=== PATIENT | male | born 1965 | race Caucasian/White ===

== ENCOUNTER 2016-09-29 11:30 | Inpatient (IN) | payer OTHER ==
[2016-09-29] MEDS ORDERED: ACETAMINOPHEN TAB 325 MG TAB PO PRN (22:33)
[2016-09-29] MEDS ORDERED: ONDANSETRON 4 MG/2 ML VIAL IVP PRN (22:34)
[2016-09-30 00:02] LABS: Appearance,Urine Clear (Clear); Bilirubin,Urine Negative (Negative); Glucose,Urine (UA) Negative (Negative); Ketones,Urine Negative (Negative); Leukocyte Esterase,Urine Negative (Negative); Nitrite,Urine Negative (Negative); PH, Urine 5.5 (5.0-8.0); Protein,Urine Negative (Negative); Specific Gravity,Urine 1.003 (1.001-1.035); UA Billing (MACRO vs. MICRO) CHEM; Urobilinogen,Urine <2.0 mg/dL (<2.0)
[2016-09-30] MEDS: SODIUM CHLORIDE 0.9% 1,000 ML IV SCH ×3 (06:11→14:46)
--- NOTE | 2016-09-30 08:29 | US ---
EXAMINATION TYPE: US kidneys/renal and bladder DATE OF EXAM: 09/30/2016 7:54 AM COMPARISON: Prior ultrasound abdomen 15 August 2012 CLINICAL HISTORY: Renal failure. Grayscale, color Doppler imaging performed. Color flow noted bilaterally to the kidneys. EXAM MEASUREMENTS: Right Kidney: 11.3 x 6.0 x 5.2 cm Left Kidney: 12.0 x 6.7 x 5.3 cm TECHNOLOGIST IMPRESSION: Right Kidney: visualized portions wnl, inferior pole limited by overlying bowel gas Left Kidney: visualized portion wnl, limited by rib shadowing Bladder: wnl Bilateral Jets seen: yes There is no evidence for hydronephrosis at this point in time. No nephrolithiasis is seen. No [place] s are identified. The urinary bladder is anechoic. Bilateral ureteral jets are seen. IMPRESSION: No significant abnormality.
[2016-09-30] MEDS ORDERED: ENOXAPARIN 40 MG/0.4 ML SYRINGE SQ SCH (09:00)
[2016-09-30 09:32] LABS: Basophils % (A) 1 %; CH 32.6; CHCM 32.6; Eosinophils # (A) 0.1 k/uL (0-0.7); Eosinophils % (A) 1 %; HCT 39.4 % (39.0-53.0); HDW 2.16; HGB 12.5 gm/dL (13.0-17.5); Luc # (Auto) 0.19; Luc % (Auto) 4; Lymphocytes # (A) 0.8 k/uL (1.0-4.8); Lymphocytes % (A) 16 %; MCH 31.8 pg (25.0-35.0); MCHC 31.7 g/dL (31.0-37.0); MCV 100.4 fL (80.0-100.0); Mean Platelet Volume 8.3; Monocytes # (A) 0.4 k/uL (0-1.0); Monocytes % (A) 8 %; Neutrophils # (A) 3.8 k/uL (1.3-7.7); Neutrophils % (A) 72 %; RBC 3.92 m/uL (4.30-5.90); RDW 12.9 % (11.5-15.5); WBC 5.3 k/uL (3.8-10.6); WBC (Perox) 5.35
[2016-09-30 09:56] LABS: Calcium 9.3 mg/dL (8.4-10.2); Potassium 5.7 mmol/L (3.5-5.1)
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
[2016-09-30] MEDS ORDERED: SODIUM POLYSTYRENE SULFONATE 15 GM/60 ML BOTTLE PO STA (13:16)
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
[2016-09-30] MEDS ORDERED: SODIUM POLYSTYRENE SULFONATE 15 GM/60 ML BOTTLE PO ONE (19:30)
[2016-10-01] MEDS: SODIUM CHLORIDE 0.9% 1,000 ML IV SCH ×5 (05:56→23:05)
[2016-10-01] MEDS: ENOXAPARIN 30 MG/0.3 ML SYRINGE SQ SCH (10:13)
[2016-10-01 12:38] LABS: Calcium 9.3 mg/dL (8.4-10.2); Potassium 4.9 mmol/L (3.5-5.1)
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
--- NOTE | 2016-10-01 20:52 | PN ---
DATE OF SERVICE: 10/01/2016 PRESENTING COMPLAINT: Renal failure. INTERVAL HISTORY: This patient presented with acute renal failure. Exact cause is unknown. Getting fluids. Patient does binge on alcohol. Renal function is slightly improved. Getting IV fluids. Seen by Nephrology. Otherwise feels comfortable. Review of systems done for constitutional, cardiovascular, GI, pulmonary; relevant findings as above. Current medications include IV fluids at 150 mL/hour. On examination, temperature 98.3, pulse 87, respiration 20, blood pressure 163/94, pulse ox 97% on room air. GENERAL APPEARANCE: Lying in bed, comfortable. EYES: Pupils equal. Conjunctivae normal. NECK: JVD not raised. Mass not palpable. RESPIRATORY: Effort normal. Lungs are clear. CARDIOVASCULAR: First and second sounds normal. No edema. ABDOMEN: Soft, nontender. Liver and spleen not palpable. PSYCHIATRY: Alert and oriented x3. Mood and affect normal. INVESTIGATIONS: BUN 31, creatinine 2.0. Potassium corrected to 4.9. ASSESSMENT: 1. Acute renal failure, possibly prerenal, with benign-appearing urine. Getting hydrated. 2. 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 3. Hyperkalemia from renal failure, improved. PLAN: Continue current medication and treatment plan. Follow with Nephrology.
[2016-10-02 08:58] LABS: Calcium 9.2 mg/dL (8.4-10.2); Potassium 4.7 mmol/L (3.5-5.1)
[2016-10-02] MEDS: ENOXAPARIN 30 MG/0.3 ML SYRINGE SQ SCH (09:13)
[2016-10-02] MEDS: SODIUM CHLORIDE 0.9% 1,000 ML IV SCH ×3 (09:28→21:04)
--- NOTE | 2016-10-02 14:23 | PN ---
Patient is seen for followup for acute kidney injury. He is currently resting comfortably. He is awake, not in any acute distress. Patient's renal function has been continuously improving with IV hydration. His creatinine is now down to 1.5 from 4.6 on initial admission to the [facility]. On examination, blood pressure is 129/77, heart rate 62 per minute. He is afebrile. EXAMINATION OF THE HEART: S1 and S2. EXAMINATION OF THE LUNGS: Bilateral breath sounds are heard. ABDOMEN: Soft, nontender. Examination of lower extremities shows no evidence of edema. INVOICE CHECKER exam is grossly intact. Labs show sodium 146, potassium 4.7, BUN 23, serum creatinine 1.56. UA is completely clear. ASSESSMENT: 1. Acute kidney injury, mainly prerenal, currently improved. The patient is stable for discharge from nephrology standpoint. 2. History of seizures associated with traumatic brain injury. 3. Hyperkalemia on initial admission, currently resolved. PLAN: Patient is advised to maintain adequate fluid intake upon discharge and avoid nonsteroidal anti-inflammatory agents. Once he is discharged, he needs to have labs done as outpatient in about 1 to 2 weeks' time.
[2016-10-03 01:12] VITALS: PULSE 56
[2016-10-03] MEDS: SODIUM CHLORIDE 0.9% 1,000 ML IV SCH ×3 (03:52→14:16)
[2016-10-03 07:30] VITALS: BP 156/86; RESP 17; TEMP 96.7
[2016-10-03] MEDS: ENOXAPARIN 30 MG/0.3 ML SYRINGE SQ SCH (08:01)
[2016-10-03 08:50] LABS: Anion Gap 13 mmol/L; Blood Urea Nitrogen 18 mg/dL (9-20); Calcium 9.2 mg/dL (8.4-10.2); Carbon Dioxide 27 mmol/L (22-30); Chloride 109 mmol/L (98-107); Glucose 86 mg/dL (74-99); Non-African American GFR(MDRD) 58 (>60 ml/min/1.73 sqM); Potassium 4.5 mmol/L (3.5-5.1); Sodium 149 mmol/L (137-145)
--- NOTE | 2016-10-03 11:23 | PN ---
DATE OF SERVICE: 10/02/2016 PRESENTING COMPLAINT: Acute renal failure. INTERVAL HISTORY: This patient presented with acute renal failure. I saw this patient earlier today. Exact cause undetermined. Some improvement in renal function. Patient was asymptomatic. Getting IV fluids. Review of systems done for constitutional, cardiovascular, GI, pulmonary; relevant findings as above. Current medications are reviewed including IV fluids. On examination, temperature 98.6, pulse 51, respirations 18, blood pressure 114/93, 90% on room air. GENERAL APPEARANCE: Lying in bed, comfortable. EYES: Pupils equal, conjunctivae normal. NECK: JVD not raised. Mass not palpable. RESPIRATORY: Effort normal. Lungs are clear. CARDIOVASCULAR: First and second sounds normal. No edema. ABDOMEN: Soft, nontender. Liver and spleen not palpable. PSYCHIATRY: Alert and oriented x3. Mood and affect normal. INVESTIGATIONS: BUN 23, creatinine 1.56. ASSESSMENT: 1. Acute renal failure, possibly prerenal. Getting hydrated. 2. 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 3. Hypokalemia from renal failure, resolved. PLAN: Will continue to hydrate the patient today, hopefully can be discharged tomorrow.
--- NOTE | 2016-10-03 17:07 | PN ---
Patient is seen for followup for acute kidney injury which is mainly prerenal and significantly improved with IV hydration. Patient is resting comfortably. He denies any complaints. On examination, blood pressure is 156/86, heart rate 56 per minute. He is afebrile. Examination of the heart, S1 and S2. Examination of the lungs, bilateral breath sounds are heard. Abdomen is soft, nontender. Examination of lower extremities shows no evidence of edema. GLOBE TESTER exam is grossly intact. Labs show sodium 149, potassium 4.5, BUN 18, serum creatinine 1.3. ASSESSMENT: 1. Acute kidney injury, prerenal, currently significantly improved. Patient is stable for discharge. 2. Hypernatremia. Expect improvement once the saline is discontinued and patient is advised to maintain adequate hydration after discharge. 3. Seizures, post traumatic brain injury. PLAN: The patient is stable for discharge from nephrology standpoint.
--- NOTE | 2016-10-04 19:23 | DS ---
DATE OF ADMISSION: 09/29/2016 DATE OF DISCHARGE: 10/03/2016 FINAL DIAGNOSES: 1. Acute renal failure, possibly prerenal. 2. 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 3. Hyperkalemia from renal failure, resolved. HOSPITAL COURSE: This patient presented with renal failure and hyperkalemia, transferred from an outside facility. Potassium was 5.7. BUN and creatinine were 34 and 2.91, at the time of discharge down to 80 and 1.30, down with hydration. He was seen by Dr. Clayton. Patient's UA was rather benign. Urine was unremarkable. Patient will follow up with Dr. Clayton as an outpatient. Patient was told to increase his fluid intake. Follow-up labs: BMP in one week. Follow up with Dr. Clayton in one week. Follow up with PCP in one week.
--- NOTE | 2016-11-05 08:13 | DS ---
DATE OF ADMISSION: 09/29/2016 DATE OF DISCHARGE: 10/03/2016 ADDENDUM: On examination: RESPIRATORY: Effort normal. Lungs are clear. CARDIOVASCULAR: First and second sounds normal. No edema. ABDOMEN: Soft, nontender. Liver and spleen not palpable. PSYCHIATRY: Alert, and oriented x3. Mood and affect normal.
== END 2016-10-03 17:21 | disposition home or self-care (01) | DRG 683 ==
LOC: 4MS4W 19:38
PROVIDERS: ADMIT Hospitalist; ATTEND Hospitalist
DX: N17.9 Acute kidney failure, unspecified (principal); E87.0 Hyperosmolality and hypernatremia; R56.1 Post traumatic seizures; E87.5 Hyperkalemia; F10.10 Alcohol abuse, uncomplicated; F17.200 Nicotine dependence, unspecified, uncomplicated; Z87.820 Personal history of traumatic brain injury; Z87.828 Personal history of other (healed) physical injury and trauma
CPT/HCPCS: 76770; 80048; 81003; 82550; 85025

== ENCOUNTER 2017-11-29 07:57 | Inpatient (IN) | payer OTHER ==
[2017-11-29] MEDS ORDERED: PROPOFOL 1,000 MG in EMPTY BAG 1 BAG IV ONE (08:04)
[2017-11-29] MEDS: LORazepam 2 MG/ML INJ IV STA ×2 (08:09→08:22)
--- NOTE | 2017-11-29 08:47 | XR ---
EXAMINATION TYPE: XR chest 1V portable DATE OF EXAM: 11/29/2017 COMPARISON: 02/22/2014 HISTORY: Seizure and endotracheal tube placement. TECHNIQUE: Single frontal view of the chest is obtained. FINDINGS: The endotracheal tube is located appropriately at the level clavicular heads at the level of the aortic arch. However, the enteric tube is cephalad in position with its fenestrated portion ab ove the gastroesophageal junction. This should be advanced approximately 5 to 6 cm for optimal placem ent. There is persistent elevation of the left hemidiaphragm in comparison to exam of 2013. No new fo petros airspace disease, consolidation, pleural effusion or pneumothorax is identified. Cardiomediastina l silhouette is within normal limits. Moderate multilevel degenerative changes of the thoracic spine are noted. IMPRESSION: 1. Appropriately placed endotracheal tube. 2. Cephalad placement of the enteric tube. Advancement approximately 5 to 6 cm is recommended for opt imal placement. 3. In comparison to the prior of 2013 the left basilar opacity represents a chronically eventrated an d elevated left hemidiaphragm
[2017-11-29 08:52] LABS: ABG Base Excess 0.7 mmol/L; ABG HCO3 26 mmol/L (21-25); ABG PCO2 42 mmHg (35-45); ABG PH 7.39 (7.35-7.45); ABG PO2 375 mmHg (83-108); ABG TCO2 27 mmol/L (19-24)
[2017-11-29] MEDS ORDERED: DIPH,PERTUS(ACELL)TETVAC-LF 0.5 ML VIAL IM ONE (09:10)
[2017-11-29] MEDS ORDERED: cefTRIAXone IN SWFI 1,000 MG/10 ML SYRINGE IVP STA (09:13)
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
[2017-11-29] MEDS ORDERED: NALOXONE 0.4 MG/ML 1 ML VIAL IV PRN (09:28)
[2017-11-29] MEDS ORDERED: MORPHINE SULF 5MG/10ML VL IV PRN (09:28)
[2017-11-29] MEDS ORDERED: LORazepam 2 MG/ML INJ IV PRN (09:34)
[2017-11-29 10:18] LABS: Glucose,Whole Blood 101 mg/dL (75-99)
[2017-11-29] MEDS: SODIUM CHLORIDE 0.9% 1,000 ML IV SCH ×2 (11:04→20:08)
[2017-11-29] MEDS: ENOXAPARIN 40 MG/0.4 ML SYRINGE SQ SCH (11:04)
[2017-11-29] MEDS: PIPERACILLIN-TAZOBACTAM 3.375 GM in DEXTROSE/WATER 1 50ML.BAG IVPB SCH ×2 (11:04→18:32)
[2017-11-29] MEDS: CHLORHEXIDINE GLUCONATE 15 ML CUP MUCOUS MEM SCH ×2 (11:04→20:09)
[2017-11-29] MEDS: IPRATROPIUM-ALBUTEROL 3 ML NEB INHALATION SCH ×3 (11:05→19:28)
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
[2017-11-29] MEDS: PROPOFOL 1,000 MG in EMPTY BAG 1 BAG IV SCH ×2 (12:31→20:08)
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
[2017-11-29] MEDS: THIAMINE 100 MG/ML 2 ML VIAL IVP SCH (14:19)
[2017-11-29] MEDS ORDERED: Magnesium Replacement Protocol 1 EACH MISC MISCELLANE PRN (18:09)
[2017-11-29] MEDS ORDERED: Potassium Replacement Protocol 1 EACH MISC MISCELLANE PRN (18:09)
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
[2017-11-29] MEDS ORDERED: POTASSIUM BICARBONATE/CIT AC 20 MEQ TABLET.EFF NG-TUBE SCH (19:00)
[2017-11-29] MEDS: MAGNESIUM SULFATE-D5W PMX 1 GM in DEXTROSE/WATER 1 100ML.BAG IVPB SCH ×2 (19:05→20:09)
[2017-11-29] MEDS: levETIRAcetam IV 1,000 MG in SALINE 1 100ML.BAG IVPB SCH (20:09)
[2017-11-29] MEDS: FAMOTIDINE 20 MG/2 ML VIAL IV SCH (20:09)
[2017-11-29 21:07] LABS: Hemoglobin A1C 5.2 % (4.0-6.0)
[2017-11-30] MEDS: IPRATROPIUM-ALBUTEROL 3 ML NEB INHALATION SCH ×7 (00:09→23:52)
[2017-11-30] MEDS: PIPERACILLIN-TAZOBACTAM 3.375 GM in DEXTROSE/WATER 1 50ML.BAG IVPB SCH ×3 (03:49→18:08)
[2017-11-30 04:47] LABS: ALT 30 U/L (21-72); AST 15 U/L (17-59); Albumin 2.9 g/dL (3.5-5.0); Alkaline Phosphatase 66 U/L (38-126); Anion Gap 9 mmol/L; Blood Urea Nitrogen 9 mg/dL (9-20); Calcium 8.4 mg/dL (8.4-10.2); Carbon Dioxide 28 mmol/L (22-30); Chloride 107 mmol/L (98-107); Glucose 124 mg/dL (74-99); Magnesium 2.5 mg/dL (1.6-2.3); Phosphorus 3.7 mg/dL (2.5-4.5); Potassium 3.8 mmol/L (3.5-5.1); Sodium 144 mmol/L (137-145); Total Bilirubin 0.5 mg/dL (0.2-1.3); Total Protein 5.5 g/dL (6.3-8.2)
[2017-11-30 04:52] LABS: Basophils % (A) 0 %; Eosinophils # (A) 0.1 k/uL (0-0.7); Eosinophils % (A) 1 %; HCT 33.8 % (39.0-53.0); HGB 11.3 gm/dL (13.0-17.5); Lymphocytes # (A) 1.3 k/uL (1.0-4.8); Lymphocytes % (A) 18 %; MCH 30.7 pg (25.0-35.0); MCHC 33.3 g/dL (31.0-37.0); MCV 92.3 fL (80.0-100.0); Mean Platelet Volume 8.1; Monocytes # (A) 0.6 k/uL (0-1.0); Monocytes % (A) 9 %; Neutrophils # (A) 4.9 k/uL (1.3-7.7); Neutrophils % (A) 70 %; Platelet Count 158 k/uL (150-450); RBC 3.66 m/uL (4.30-5.90); RDW 12.5 % (11.5-15.5)
[2017-11-30] MEDS ORDERED: POTASSIUM BICARBONATE/CIT AC 20 MEQ TABLET.EFF NG-TUBE SCH (06:00)
[2017-11-30] MEDS: PROPOFOL 1,000 MG in EMPTY BAG 1 BAG IV SCH (06:54)
[2017-11-30] MEDS: SODIUM CHLORIDE 0.9% 1,000 ML IV SCH ×2 (06:55→16:46)
[2017-11-30 08:03] LABS: ABG Base Excess 5.5 mmol/L; ABG HCO3 30 mmol/L (21-25); ABG PCO2 45 mmHg (35-45); ABG PH 7.43 (7.35-7.45); ABG PO2 147 mmHg (83-108); ABG TCO2 31 mmol/L (19-24)
[2017-11-30] MEDS: FAMOTIDINE 20 MG/2 ML VIAL IV SCH ×2 (08:11→20:01)
[2017-11-30] MEDS: THIAMINE 100 MG/ML 2 ML VIAL IVP SCH (08:11)
[2017-11-30] MEDS: CHLORHEXIDINE GLUCONATE 15 ML CUP MUCOUS MEM SCH (08:11)
[2017-11-30] MEDS: levETIRAcetam IV 1,000 MG in SALINE 1 100ML.BAG IVPB SCH ×2 (08:12→20:03)
[2017-11-30] MEDS: ENOXAPARIN 40 MG/0.4 ML SYRINGE SQ SCH (08:12)
--- NOTE | 2017-11-30 08:24 | CT ---
EXAMINATION TYPE: CT brain wo con DATE OF EXAM: 11/30/2017 COMPARISON: 02/22/2014 HISTORY: Patient with status epilepticus and closed head injury. TECHNIQUE: Examination was done in axial plane without intravenous contrast. Coronal and sagittal r econstructions performed. CT DLP: 1180 mGycm Automated exposure control for dose reduction was used. FINDINGS: Redemonstrated left frontal and temporal craniotomy flaps. Underlying encephalomalacia within these l obes and also within the inferior anterior right frontal lobe, findings unchanged from 2013. Slight a symmetric ex vacuo enlargement of the temporal horn of the left lateral ventricle. No hydrocephalus. There may be mild scalp contusion along the anterior left frontal region. No extra-axial fluid collection, mass effect, midline shift, or effacement of basal subarachnoid cist erns. Rogers-white matter differentiation appears maintained. Paranasal sinuses and mastoid air cells appear well pneumatized. Orbits and globes appear intact. IMPRESSION: 1. Stable exam without acute intracranial abnormality seen. 2. Left frontal and temporal craniotomy flaps with underlying extensive encephalomalacia and addition al smaller encephalomalacia anterior inferior right frontal lobe.
--- NOTE | 2017-11-30 08:36 | XR ---
EXAMINATION TYPE: XR chest 1V portable DATE OF EXAM: 11/30/2017 Comparison: 11/29/2017 Clinical History: 52-year-old male Tube placement Findings: ET and NG tubes are satisfactory. NG tube has been further advanced into the stomach. The distal aspe ct is beyond the field of view. Heart normal size. Patchy left basilar opacity persists. Strandy areas of atelectasis throughout the lungs. Small left effusion is suggested. Impression: Small left pleural effusion with adjacent left basilar atelectasis and/or consolidation.
[2017-11-30] MEDS ORDERED: LORazepam 2 MG/ML INJ IV PRN ×3 (11:09)
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
--- NOTE | 2017-11-30 16:51 | EEG ---
ELECTROENCEPHALOGRAM REPORT DATE OF EE11/30/2017 ELECTROENCEPHALOGRAPHIC EXAMINATION REPORT: INDICATION FOR EXAMINATION: This patient is a 52-year-old male admitted with acute status epilepticus and alcohol intoxication. AGE: 52. EEG FINDINGS: A routine 21-channel awake digital EEG recording was accomplished utilizing the 10-20 international system with bipolar and referential montages. The background activity in the most alert resting state consists of a low to medium amplitude, poorly developed and poorly sustained 4-5 Hz activity over the posterior head regions. This posterior rhythm attenuates to eye opening. There is a small amount of low amplitude 18-20 Hz beta activity seen maximally over the anterior head regions. Muscle and movement artifact was observed on several occasions during the tracing. Hyperventilation was not performed. Photic stimulation at flash frequencies of 2-30 Hz produced a minimal occipital driving response. No epileptiform discharges were seen. IMPRESSION: This EEG gives evidence of a severe widespread diffuse disturbance in cerebral function. The EEG failed to reveal any focal, lateralized, or epileptiform abnormalities. If clinically indicated, a follow-up EEG is recommended. Clinical correlation is recommended. MMODL / IJN: [id number] /
--- NOTE | 2017-11-30 19:29 | P.PN ---
Subjective Progress Note Date: 11/30/17 This patient is a 52-year-old male who was admitted to the intensive care unit yesterday with symptoms of acute hypoxic respiratory failure secondary to status epilepticus. Patient was extubated today and this noted to be sitting up in his chair in the ICU. He still remains quite confused. He does answer some questions appropriately. Patient is currently being treated for seizures and is on Keppra monotherapy. His Keppra level is pending this morning. He underwent a routine EEG which was reviewed and reveals him to have diffuse slowing. No epileptiform discharges were seen. We will continue him on Keppra at this time. He has a history of alcohol abuse in the past and should be counseled on this risk factor for recurrent seizures. We will continue close neurological follow-up for this patient in the intensive care unit. Patient is to be maintained on a CIWA protocol at this time. We will recheck his Keppra level tomorrow morning and adjust it as needed. His overall prognosis at this time remains guarded. Objective - Vital Signs Vital signs: Vital Signs Temp 98.8 F 11/30/17 16:00 Pulse 96 11/30/17 19:00 Resp 16 11/30/17 19:00 BP 146/80 11/30/17 19:00 Pulse Ox 98 11/30/17 19:00 Intake & Output 11/30/17 11/30/17 12/01/17 06:59 18:59 06:59 Intake Total 2180 1523.2 100 Output Total 1695 1820 Balance 485 -296.8 100 Weight 76.9 kg Intake: IV 1350 1250 100 Magnesium Sulfate-D5w Pmx 200 1 gm In Dextrose/Water 1 100ml.bag @ 100 mls/hr IVPB Q1H [facility] Rx#: [id number] Piperacillin-Tazobactam 3 50 50 .375 gm In Dextrose/Water 1 50ml.bag @ 12.5 mls/hr IVPB Q8H [facility] Rx#: [id number] Sodium Chloride 0.9% 1, 1100 1200 100 000 ml @ 100 mls/hr IV . Q10H [facility] Rx#:[id number] Intake, IV Titration 200 27.2 Amount Propofol 1,000 mg In 200 27.2 Empty Bag 1 bag @ Titrate IV .Q0M [facility] Rx#: [id number] Tube Feeding 540 216 Other 90 30 Output: Urine 1695 1820 Other: Voiding Method Indwelling Catheter Indwelling Catheter - Exam Physical examination: PHYSICAL EXAMINATION: Patient is resting comfortably in bed. Patient is noted to be sitting up in chair next to his bed today. He is following simple commands. VITAL SIGNS: Blood pressure is [146/80]. Heart rate is [96]. Respiration is [16] . Temperature is [98.8]. HEENT: Head is atraumatic, neck is supple, there were no carotid bruits. CHEST: Lungs are clear to auscultation and percussion. CARDIAC: S1, S2 normal rate and rhythm. There is no murmur. ABDOMEN: Soft and nontender. Bowel sounds are present. EXTREMITIES: There is no pedal edema. Peripheral pulses are present. Neurological examination: Patient is awake and sitting up in chair at bedside. He follows simple commands. His memory and intellectual function slightly impaired. Cranial nerves II through XII are grossly intact. Motor examination fails to reveal any focal weakness. Deep tendon reflexes are 1+ and symmetric. Plantar responses flexor bilaterally. - Labs CBC & Chem 7: 11/30/17 04:03 11/30/17 04:03 Labs: Abnormal Lab Results - Last 24 Hours (Table) 11/30/17 11/30/17 11/30/17 Range/Units 04:03 04:03 07:50 RBC 3.66 L (4.30-5.90) m/uL Hgb 11.3 L (13.0-17.5) gm/dL Hct 33.8 L (39.0-53.0) % ABG pO2 147 H (83-108) mmHg ABG HCO3 30 H (21-25) mmol/L ABG Total CO2 31 H (19-24) mmol/L ABG O2 Saturation 100.0 H (94-97) % Creatinine 0.60 L (0.66-1.25) mg/dL Glucose 124 H (74-99) mg/dL Magnesium 2.5 H (1.6-2.3) mg/dL AST 15 L (17-59) U/L Total Protein 5.5 L (6.3-8.2) g/dL Albumin 2.9 L (3.5-5.0) g/dL Microbiology - Last 24 Hours (Table) 11/29/17 08:15 Gram Stain - Preliminary Sputum Sputum Culture - Preliminary Assessment and Plan (1) Status epilepticus Current Visit: Yes Status: Acute Code(s): G40.901 - EPILEPSY, UNSP, NOT INTRACTABLE, WITH STATUS EPILEPTICUS SNOMED Code(s): 286684333 (2) Delirium tremens Current Visit: Yes Status: Acute Code(s): F10.231 - ALCOHOL DEPENDENCE WITH WITHDRAWAL DELIRIUM SNOMED Code(s): 8307454 (3) Traumatic brain injury Current Visit: Yes Status: Acute Code(s): S06.9X9A - UNSP INTRACRANIAL INJURY W LOC OF UNSP DURATION, INIT SNOMED Code(s): 159146800 (4) Seizure disorder Current Visit: Yes Status: Acute Code(s): G40.909 - EPILEPSY, UNSP, NOT INTRACTABLE, WITHOUT STATUS EPILEPTICUS SNOMED Code(s): 401385393 (5) Acute renal failure Current Visit: No Status: Acute Code(s): N17.9 - ACUTE KIDNEY FAILURE, UNSPECIFIED SNOMED Code(s): 45791569 Plan: This patient is a 52-year-old male who was admitted to the intensive care unit with symptoms of acute hypoxic respiratory failure secondary status epilepticus. He was history of alcohol intoxication. He was started on a CIWA protocol for further management. He underwent routine EEG today which was reviewed. His EEG is moderately slow consistent with a encephalopathy with no acute epileptic focus. He is to be maintained on Keppra monotherapy for seizure prophylaxis. He underwent a computed tomography scan of the brain today the results of which are reviewed. CAT scan is without any acute intracranial abnormality. There is a left frontal and temporal craniotomy flap noted. There is extensive encephalomalacia over the left frontotemporal region as well as right frontal lobe. We're waiting his Keppra blood level to return from the laboratory. He is to continue on current treatment plan for seizure prevention. He is been updated on [place] driving law with states he cannot drive motor vehicle for 6 months following his last seizure. Patient overall prognosis at this time remains very guarded.
[2017-12-01] MEDS: PIPERACILLIN-TAZOBACTAM 3.375 GM in DEXTROSE/WATER 1 50ML.BAG IVPB SCH ×2 (03:21→11:59)
[2017-12-01] MEDS: IPRATROPIUM-ALBUTEROL 3 ML NEB INHALATION SCH ×6 (03:51→19:56)
[2017-12-01 05:09] LABS: Basophils % (A) 0 %; Eosinophils # (A) 0.1 k/uL (0-0.7); Eosinophils % (A) 2 %; HCT 33.8 % (39.0-53.0); Lymphocytes # (A) 1.5 k/uL (1.0-4.8); Lymphocytes % (A) 25 %; MCH 30.5 pg (25.0-35.0); MCHC 32.6 g/dL (31.0-37.0); MCV 93.5 fL (80.0-100.0); Monocytes # (A) 0.5 k/uL (0-1.0); Monocytes % (A) 8 %; Neutrophils # (A) 3.8 k/uL (1.3-7.7); Neutrophils % (A) 63 %; Platelet Count 169 k/uL (150-450); RBC 3.62 m/uL (4.30-5.90); RDW 12.5 % (11.5-15.5)
[2017-12-01 05:42] LABS: Anion Gap 9 mmol/L; Blood Urea Nitrogen 8 mg/dL (9-20); Calcium 8.5 mg/dL (8.4-10.2); Carbon Dioxide 27 mmol/L (22-30); Chloride 111 mmol/L (98-107); Glucose 83 mg/dL (74-99); Phosphorus 4.1 mg/dL (2.5-4.5); Sodium 147 mmol/L (137-145)
[2017-12-01] MEDS: levETIRAcetam IV 1,000 MG in SALINE 1 100ML.BAG IVPB SCH ×2 (07:41→20:50)
[2017-12-01] MEDS: ENOXAPARIN 40 MG/0.4 ML SYRINGE SQ SCH (07:42)
[2017-12-01] MEDS: THIAMINE 100 MG/ML 2 ML VIAL IVP SCH (07:42)
[2017-12-01] MEDS: FAMOTIDINE 20 MG/2 ML VIAL IV SCH (07:42)
--- NOTE | 2017-12-01 10:09 | XR ---
EXAMINATION TYPE: XR chest 1V portable DATE OF EXAM: 12/01/2017 COMPARISON: 11/30/2017 HISTORY: Aspiration pneumonia TECHNIQUE: Single frontal view of the chest is obtained. FINDINGS: Similar patchy left basilar opacity is unchanged from the prior. Minimal left hemidiaphrag m elevation is also seen. Remainder the lungs are clear. Endotracheal tube and enteric tube have been removed in the interim. Osseous structures are grossly intact. Cardia mediastinal silhouette is with in normal limits. IMPRESSION: Interval removal of the enteric and endotracheal tubes. Unchanged left basilar opacity t hat may represent atelectasis or pneumonia in the appropriate clinical setting.
[2017-12-01] MEDS ORDERED: MORPHINE ORAL SOLN 10 MG/5 ML CUP PO PRN (10:25)
[2017-12-01] MEDS: SODIUM CHLORIDE 0.9% 1,000 ML IV SCH (11:59)
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
[2017-12-01] MEDS: AMOXIC-POT CLAV 875-125MG 1 EACH TAB PO SCH ×2 (15:39→20:49)
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
[2017-12-01] MEDS: DEXTROSE 5% IN WATER 1,000 ML IV SCH ×2 (17:15→20:53)
[2017-12-01 18:04] VITALS: RESP 18
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
[2017-12-01] MEDS ORDERED: IPRATROPIUM-ALBUTEROL 3 ML NEB INHALATION PRN (19:51)
[2017-12-01] MEDS: FAMOTIDINE 20 MG TAB PO SCH (20:49)
--- NOTE | 2017-12-01 23:23 | P.PN ---
Subjective Progress Note Date: 12/01/17 This patient is a 52-year-old male who was admitted to the intensive care unit yesterday with symptoms of acute hypoxic respiratory failure secondary to status epilepticus. Patient was extubated today and this noted to be sitting up in his chair in the ICU. He still remains quite confused. He does answer some questions appropriately. Patient is currently being treated for seizures and is on Keppra monotherapy. His Keppra level is pending this morning. He underwent a routine EEG which was reviewed and reveals him to have diffuse slowing. No epileptiform discharges were seen. We will continue him on Keppra at this time. He has a history of alcohol abuse in the past and should be counseled on this risk factor for recurrent seizures. We will continue close neurological follow-up for this patient in the intensive care unit. Patient is to be maintained on a CIWA protocol at this time. We are still awaiting the Keppra blood level to return from the laboratory. Patient was seen by psychiatry today as he has voiced opinion for possible suicidal ideation. We will await further recommendations from psychiatry. Patient remains confused and disoriented at times. He still appears to have some degree of encephalopathy. This may be secondary to his known history of closed head injury in the past. We will recheck his Keppra level tomorrow morning and adjust it as needed. His overall prognosis at this time remains guarded. Objective - Vital Signs Vital signs: Vital Signs Temp 97.7 F 12/01/17 08:00 Pulse 65 12/01/17 15:37 Resp 28 H 12/01/17 12:59 BP 154/87 12/01/17 12:59 Pulse Ox 88 L 12/01/17 12:59 Intake & Output 11/30/17 12/01/17 12/01/17 18:59 06:59 18:59 Intake Total 1523.2 1300 1100 Output Total 4454 354 3809 Balance -296.8 875 -1525 Weight 76.9 kg Intake: IV 1250 1300 600 Piperacillin-Tazobactam 3 50 .375 gm In Dextrose/Water 1 50ml.bag @ 12.5 mls/hr IVPB Q8H [facility] Rx#: [id number] Sodium Chloride 0.9% 1, 1200 1300 600 000 ml @ 100 mls/hr IV . Q10H [facility] Rx#:[id number] Intake, IV Titration 27.2 300 Amount Dextrose 5% in Water 1, 300 000 ml @ 100 mls/hr IV . Q10H [facility] Rx#:[id number] Propofol 1,000 mg In 27.2 Empty Bag 1 bag @ Titrate IV .Q0M [facility] Rx#: [id number] Oral 200 Tube Feeding 216 Other 30 Output: Urine 9746 382 2983 Other: Voiding Method Indwelling Catheter Urinal Urinal # Voids 0 1 - Exam Physical examination: PHYSICAL EXAMINATION: Patient is resting comfortably in bed. Patient is noted to be sitting up in chair next to his bed today. He is following simple commands. VITAL SIGNS: Blood pressure is [154/87]. Heart rate is [82]. Respiration is [20] . Temperature is [97.7]. HEENT: Head is atraumatic, neck is supple, there were no carotid bruits. CHEST: Lungs are clear to auscultation and percussion. CARDIAC: S1, S2 normal rate and rhythm. There is no murmur. ABDOMEN: Soft and nontender. Bowel sounds are present. EXTREMITIES: There is no pedal edema. Peripheral pulses are present. Neurological examination: Patient is awake and sitting up in chair at bedside. He follows simple commands. His memory and intellectual function slightly impaired. Cranial nerves II through XII are grossly intact. Motor examination fails to reveal any focal weakness. Deep tendon reflexes are 1+ and symmetric. Plantar responses flexor bilaterally. - Labs CBC & Chem 7: 12/01/17 04:32 12/01/17 04:32 Labs: Abnormal Lab Results - Last 24 Hours (Table) 12/01/17 12/01/17 Range/Units 04:32 04:32 RBC 3.62 L (4.30-5.90) m/uL Hgb 11.0 L (13.0-17.5) gm/dL Hct 33.8 L (39.0-53.0) % Sodium 147 H (137-145) mmol/L Chloride 111 H (98-107) mmol/L BUN 8 L (9-20) mg/dL Microbiology - Last 24 Hours (Table) 11/29/17 08:15 Gram Stain - Final Sputum Sputum Culture - Final Assessment and Plan (1) Status epilepticus Current Visit: Yes Status: Acute Code(s): G40.901 - EPILEPSY, UNSP, NOT INTRACTABLE, WITH STATUS EPILEPTICUS SNOMED Code(s): 770690711 (2) Delirium tremens Current Visit: Yes Status: Acute Code(s): F10.231 - ALCOHOL DEPENDENCE WITH WITHDRAWAL DELIRIUM SNOMED Code(s): 7013842 (3) Traumatic brain injury Current Visit: Yes Status: Acute Code(s): S06.9X9A - UNSP INTRACRANIAL INJURY W LOC OF UNSP DURATION, INIT SNOMED Code(s): 288170593 (4) Seizure disorder Current Visit: Yes Status: Acute Code(s): G40.909 - EPILEPSY, UNSP, NOT INTRACTABLE, WITHOUT STATUS EPILEPTICUS SNOMED Code(s): 707212692 (5) Acute renal failure Current Visit: No Status: Acute Code(s): N17.9 - ACUTE KIDNEY FAILURE, UNSPECIFIED SNOMED Code(s): 08975090 Plan: This patient is a 52-year-old male who was admitted to the intensive care unit with symptoms of acute hypoxic respiratory failure secondary status epilepticus. He was history of alcohol intoxication. He was started on a CIFL protocol for further management. He underwent routine EEG today which was reviewed. His EEG is moderately slow consistent with a encephalopathy with no acute epileptic focus. He is to be maintained on Keppra monotherapy for seizure prophylaxis. He underwent a computed tomography scan of the brain today the results of which are reviewed. CAT scan is without any acute intracranial abnormality. There is a left frontal and temporal craniotomy flap noted. There is extensive encephalomalacia over the left frontotemporal region as well as right frontal lobe. We're waiting his Keppra blood level to return from the laboratory. He is to continue on current treatment plan for seizure prevention. He is been updated on [place] driving law with states he cannot drive motor vehicle for 6 months following his last seizure. Patient was seen by psychiatry today as he had symptoms of suicidal ideation. We are waiting for the recommendations from psychiatry. Patient is being transferred out of the intensive care unit to the medical floor later today. Patient overall prognosis at this time remains very guarded.
[2017-12-02] MEDS: AMOXIC-POT CLAV 875-125MG 1 EACH TAB PO SCH (07:42)
[2017-12-02] MEDS: FAMOTIDINE 20 MG TAB PO SCH (07:42)
[2017-12-02] MEDS: ENOXAPARIN 40 MG/0.4 ML SYRINGE SQ SCH (07:42)
[2017-12-02] MEDS: THIAMINE 100 MG/ML 2 ML VIAL IVP SCH (07:42)
[2017-12-02] MEDS: levETIRAcetam IV 1,000 MG in SALINE 1 100ML.BAG IVPB SCH (07:42)
[2017-12-02] MEDS: DEXTROSE 5% IN WATER 1,000 ML IV SCH (07:43)
[2017-12-02] MEDS: IPRATROPIUM-ALBUTEROL 3 ML NEB INHALATION SCH ×2 (07:52→13:38)
[2017-12-02 09:13] LABS: Basophils % (A) 1 %; Eosinophils # (A) 0.2 k/uL (0-0.7); Eosinophils % (A) 3 %; HCT 37.9 % (39.0-53.0); HGB 12.6 gm/dL (13.0-17.5); Lymphocytes # (A) 1.7 k/uL (1.0-4.8); Lymphocytes % (A) 25 %; MCH 31.1 pg (25.0-35.0); MCHC 33.3 g/dL (31.0-37.0); MCV 93.5 fL (80.0-100.0); Monocytes # (A) 0.5 k/uL (0-1.0); Monocytes % (A) 7 %; Neutrophils # (A) 4.2 k/uL (1.3-7.7); Neutrophils % (A) 61 %; Platelet Count 190 k/uL (150-450); RBC 4.05 m/uL (4.30-5.90); RDW 12.3 % (11.5-15.5); WBC 6.8 k/uL (3.8-10.6)
[2017-12-02 09:40] LABS: Anion Gap 12 mmol/L; Blood Urea Nitrogen 8 mg/dL (9-20); Calcium 9.6 mg/dL (8.4-10.2); Carbon Dioxide 26 mmol/L (22-30); Chloride 104 mmol/L (98-107); Glucose 128 mg/dL (74-99); Magnesium 1.8 mg/dL (1.6-2.3); Phosphorus 3.9 mg/dL (2.5-4.5); Potassium 4.1 mmol/L (3.5-5.1); Sodium 142 mmol/L (137-145)
[2017-12-02 11:54] VITALS: BMI 24.3
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
[2017-12-02 15:26] VITALS: BP 129/78; PULSE 64; TEMP 96.2
--- NOTE | 2017-12-02 15:34 | P.PN ---
Subjective Progress Note Date: 12/02/17 This patient is a 52-year-old male who was admitted to the intensive care unit yesterday with symptoms of acute hypoxic respiratory failure secondary to status epilepticus. Patient was extubated today and this noted to be sitting up in his chair in the ICU. He still remains quite confused. He does answer some questions appropriately. Patient is currently being treated for seizures and is on Keppra monotherapy. His Keppra level is pending this morning. He underwent a routine EEG which was reviewed and reveals him to have diffuse slowing. No epileptiform discharges were seen. We will continue him on Keppra at this time. He has a history of alcohol abuse in the past and should be counseled on this risk factor for recurrent seizures. We will continue close neurological follow-up for this patient in the intensive care unit. Patient is to be maintained on a CIWA protocol at this time. We are still awaiting the Keppra blood level to return from the laboratory. We will switch the patient to oral Keppra dosing which she is to continue for further management of underlying seizure disorder. Patient was seen by psychiatry today as he has voiced opinion for possible suicidal ideation. We will await further recommendations from psychiatry. Patient remains confused and disoriented at times. He still appears to have some degree of encephalopathy. This may be secondary to his known history of closed head injury in the past. We will recheck his Keppra level tomorrow morning and adjust it as needed. Patient was seen by psychiatry today and he is being transferred to the inpatient psychiatric unit for treatment of his mood disorder and suicidal ideation. Patient is to continue with suicide precautions while on the medical floor. His overall prognosis at this time remains guarded. Objective - Vital Signs Vital signs: Vital Signs Temp 96.2 F L 12/02/17 15:00 Pulse 64 12/02/17 15:00 Resp 18 12/02/17 15:00 BP 129/78 12/02/17 15:00 Pulse Ox 95 12/02/17 15:00 Intake & Output 12/01/17 12/02/17 12/02/17 18:59 06:59 18:59 Intake Total 1100 900 Output Total 3450 Balance -2350 900 Weight 76.9 kg Intake: IV 600 Sodium Chloride 0.9% 1, 600 000 ml @ 100 mls/hr IV . Q10H [facility] Rx#:[id number] Intake, IV Titration 300 900 Amount Dextrose 5% in Water 1, 300 800 000 ml @ 100 mls/hr IV . Q10H [facility] Rx#:[id number] levETIRAcetam IV 1,000 mg 100 In Saline 1 100ml.bag @ 400 mls/hr IVPB Q12HR [facility] Rx#:[id number] Oral 200 Output: Urine 3450 Other: Voiding Method Urinal Toilet # Voids 2 2 3 # Bowel Movements 1 - Exam Physical examination: PHYSICAL EXAMINATION: Patient is resting comfortably in bed. Patient is noted to be sitting up in chair next to his bed today. He is following simple commands. VITAL SIGNS: Blood pressure is [129/78]. Heart rate is [64]. Respiration is [18] . Temperature is [96.2]. HEENT: Head is atraumatic, neck is supple, there were no carotid bruits. CHEST: Lungs are clear to auscultation and percussion. CARDIAC: S1, S2 normal rate and rhythm. There is no murmur. ABDOMEN: Soft and nontender. Bowel sounds are present. EXTREMITIES: There is no pedal edema. Peripheral pulses are present. Neurological examination: Patient is awake and sitting up in chair at bedside. He follows simple commands. His memory and intellectual function slightly impaired. Cranial nerves II through XII are grossly intact. Motor examination fails to reveal any focal weakness. Deep tendon reflexes are 1+ and symmetric. Plantar responses flexor bilaterally. - Labs CBC & Chem 7: 12/02/17 08:27 12/02/17 08:27 Labs: Abnormal Lab Results - Last 24 Hours (Table) 12/02/17 12/02/17 Range/Units 08:27 08:27 RBC 4.05 L (4.30-5.90) m/uL Hgb 12.6 L (13.0-17.5) gm/dL Hct 37.9 L (39.0-53.0) % BUN 8 L (9-20) mg/dL Glucose 128 H (74-99) mg/dL Assessment and Plan (1) Status epilepticus Current Visit: Yes Status: Acute Code(s): G40.901 - EPILEPSY, UNSP, NOT INTRACTABLE, WITH STATUS EPILEPTICUS SNOMED Code(s): 269501703 (2) Delirium tremens Current Visit: Yes Status: Acute Code(s): F10.231 - ALCOHOL DEPENDENCE WITH WITHDRAWAL DELIRIUM SNOMED Code(s): 1105193 (3) Traumatic brain injury Current Visit: Yes Status: Acute Code(s): S06.9X9A - UNSP INTRACRANIAL INJURY W LOC OF UNSP DURATION, INIT SNOMED Code(s): 856487141 (4) Seizure disorder Current Visit: Yes Status: Acute Code(s): G40.909 - EPILEPSY, UNSP, NOT INTRACTABLE, WITHOUT STATUS EPILEPTICUS SNOMED Code(s): 349521283 (5) Acute renal failure Current Visit: No Status: Acute Code(s): N17.9 - ACUTE KIDNEY FAILURE, UNSPECIFIED SNOMED Code(s): 36893811 Plan: This patient is a 52-year-old male being evaluated for history of status epilepticus and closed head injury. Patient is currently on Keppra monotherapy for seizure prophylaxis. He was seen by psychiatry as he has been having suicidal ideation. Psychiatry is planning to transfer him to the inpatient psychiatric unit today for further management. He is having mood disorder and suicidal ideation. He is to continue on Keppra monotherapy for seizure prophylaxis. His level is still pending which was drawn several days ago in the ICU. Suggest he be converted to oral dose of Keppra thousand milligrams by mouth twice a day. Should have a repeat Keppra level done tomorrow morning and follow-up with the results and adjust his dose as needed. Patient is being readied for possible transfer to the inpatient psychiatric unit. We would recommend clearance from medicine for him as well to be transferred into the psychiatric unit for close monitoring. His overall prognosis at this time remains very guarded.
[2017-12-02] MEDS ORDERED: levETIRAcetam 500 MG TAB PO SCH (21:00)
== END 2017-12-02 17:22 | DRG 208 ==
LOC: EC 07:57 → SUPCPDRO 07:57 → 6ICU 09:28 → 4MS4W 12-01 17:53
PROVIDERS: ADMIT Hospitalist; ATTEND Hospitalist
PROC: 5A1945Z Respiratory Ventilation, 24-96 Consecutive Hours (ICD-10-PCS; principal; 2017-11-29)
DX: J96.01 Acute respiratory failure with hypoxia (principal); J69.0 Pneumonitis due to inhalation of food and vomit; G93.40 Encephalopathy, unspecified; F10.231 Alcohol dependence with withdrawal delirium; J90 Pleural effusion, not elsewhere classified; N17.9 Acute kidney failure, unspecified; E87.2 Acidosis; J98.11 Atelectasis; R45.851 Suicidal ideations; G40.901 Epilepsy, unspecified, not intractable, with status epilepticus; F10.229 Alcohol dependence with intoxication, unspecified; F39 Unspecified mood [affective] disorder; I10 Essential (primary) hypertension; R00.1 Bradycardia, unspecified; R45.4 Irritability and anger; F32.9 Major depressive disorder, single episode, unspecified; G93.89 Other specified disorders of brain; S00.81XA Abrasion of other part of head, initial encounter; Z87.891 Personal history of nicotine dependence; Z87.01 Personal history of pneumonia (recurrent); Z87.820 Personal history of traumatic brain injury; W19.XXXA Unspecified fall, initial encounter; Y92.9 Unspecified place or not applicable; Y90.8 Blood alcohol level of 240 mg/100 ml or more
CPT/HCPCS: 36415; 36600; 43753; 70450; 71045; 80048; 80053; 80177; 82805; 83036; 83605; 83735; 84100; 85025; 87070; 87205; 93005; 94002; 94003; 94640; 95819; 96374; 96375; 99291

== ENCOUNTER 2017-12-02 17:07 | Inpatient (IN) | payer MEDICAID, OTHER ==
[2017-12-02 17:49] VITALS: BMI 24.5
[2017-12-02] MEDS ORDERED: ACETAMINOPHEN TAB 325 MG TAB PO PRN (18:02)
[2017-12-02] MEDS ORDERED: MAGNESIUM HYDROXIDE 2,400 MG/10 ML CUP PO PRN (18:02)
[2017-12-02] MEDS ORDERED: MAG HYDROX/AL HYDROX/SIMETH 30 ML CUP PO PRN (18:02)
[2017-12-02] MEDS ORDERED: LORazepam 1 MG TAB PO PRN (18:02)
[2017-12-02] MEDS: AMOXIC-POT CLAV 875-125MG 1 EACH TAB PO SCH (21:30)
[2017-12-02] MEDS: FAMOTIDINE 20 MG TAB PO SCH (21:31)
[2017-12-02] MEDS: levETIRAcetam 500 MG TAB PO SCH (21:46)
[2017-12-02] MEDS: IPRATROPIUM-ALBUTEROL 3 ML NEB INHALATION SCH (21:48)
[2017-12-03] MEDS: AMOXIC-POT CLAV 875-125MG 1 EACH TAB PO SCH ×2 (08:47→20:09)
[2017-12-03] MEDS: FAMOTIDINE 20 MG TAB PO SCH ×2 (08:48→20:09)
[2017-12-03] MEDS: levETIRAcetam 500 MG TAB PO SCH ×2 (08:49→20:09)
[2017-12-03] MEDS: IPRATROPIUM-ALBUTEROL 3 ML NEB INHALATION SCH ×3 (09:28→19:53)
[2017-12-03] MEDS: CITALOPRAM HYDROBROMIDE 10 MG TAB PO SCH (11:00)
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
[2017-12-03] MEDS: MULTIVITAMINS, THERA 1 EACH TAB PO SCH (12:25)
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
[2017-12-04 06:24] VITALS: RESP 16
[2017-12-04] MEDS: AMOXIC-POT CLAV 875-125MG 1 EACH TAB PO SCH ×2 (08:53→20:19)
[2017-12-04] MEDS: levETIRAcetam 500 MG TAB PO SCH ×2 (08:54→20:19)
[2017-12-04] MEDS: CITALOPRAM HYDROBROMIDE 10 MG TAB PO SCH (08:54)
[2017-12-04] MEDS: FAMOTIDINE 20 MG TAB PO SCH ×2 (08:54→20:19)
[2017-12-04] MEDS: IPRATROPIUM-ALBUTEROL 3 ML NEB INHALATION SCH ×3 (09:14→22:14)
[2017-12-04 11:59] LABS: Amphetamine Screen,Urine Not Detected (NotDetected); Barbiturate Screen,Urine Not Detected (NotDetected); Benzodiazepines Screen,Urine Not Detected (NotDetected); Cocaine Screen,Urine Not Detected (NotDetected); Methadone Screen, Urine Not Detected (NotDetected); Opiate Screen,Urine Not Detected (NotDetected); Oxycodone Screen, Urine Not Detected (NotDetected); Phencyclidine Screen,Urine Not Detected (NotDetected); Tricyclic Antidepressant,Urine Not Detected (NotDetected); Urn Cannabinoid Scrn Not Detected (NotDetected)
--- NOTE | 2017-12-04 12:03 | P.PN ---
Progress Note - Text Progress Note Date: 12/04/17 Interval History: Patient is a 52-year-old male who was seen today and he reports that he is feeling sore from his seizure. He stated that he slept well and is eating well. He reports that he is attending some groups but is trying to walk to keep himself from getting stiff. Patient did not report any suicidal thoughts today. He had no complaints of side effects from the medication. Mental Status: Appearance/Attitude: Patient is appropriately dressed, made good eye contact and was cooperative. Behavior: He did not display any psychomotor agitation or retardation. Speech/Language: Patient's speech was spontaneous and normal volume and rhythm and he was coherent. Thought Process: Patient was more goal-directed today, would not make repetitive suicidal statements, no evidence of loose associations or flight of ideas Thought Content: Patient denied auditory or visual hallucinations and no delusions or paranoid ideation were elicited. Patient reported that he is sleeping and eating well. He reported no side effects from medication and was not stating that he felt disgusted with himself. Suicidal/Homicidal Ideation: He denied any current suicidal or homicidal ideation and was not making repetitive statements about wishing he was , wanting to shoot himself in the head. Sensorium/Cognition: Patient is alert and oriented to person, place, and time and his recent and remote memory which were tested yesterday showed difficulty with recent memory. Mood/Affect: Patient's mood is pleasant and his affect is appropriate Insight/Judgment: Patient's insight and judgment are fair Assessment: Patient was seen today and did not repetitively repeat comments about wishing he was , shooting himself in the head and stated that he was not feeling suicidal. Patient states that he is sleeping and eating well and reported some pain from his recent seizure and fall. Patient states that he's been attending groups and activities but is walking to keep himself from feeling stiff. He reported no side effects from medication. Plan: Patient will continue on Celexa 10 mg daily, patient most likely can be discharged in the next several days once a discharge plan has been made regarding his living situation, financial situation.
[2017-12-04] MEDS: MULTIVITAMINS, THERA 1 EACH TAB PO SCH (12:42)
[2017-12-05] MEDS: CITALOPRAM HYDROBROMIDE 10 MG TAB PO SCH (08:37)
[2017-12-05] MEDS: AMOXIC-POT CLAV 875-125MG 1 EACH TAB PO SCH ×2 (08:37→21:25)
[2017-12-05] MEDS: FAMOTIDINE 20 MG TAB PO SCH ×2 (08:37→21:26)
[2017-12-05] MEDS: levETIRAcetam 500 MG TAB PO SCH ×2 (08:37→21:26)
[2017-12-05] MEDS: IPRATROPIUM-ALBUTEROL 3 ML NEB INHALATION SCH ×3 (08:59→21:16)
[2017-12-05] MEDS: MULTIVITAMINS, THERA 1 EACH TAB PO SCH (12:17)
--- NOTE | 2017-12-05 13:50 | P.PN ---
Progress Note - Text Progress Note Date: 12/05/17 Interval History: Patient is a 52-year-old male who reports that he is feeling better, not feeling as disgusted with himself. He states that he has not been making statements about suicide and has not made them during our meetings. Patient discussed his attending AA meetings while he was in alf, and states that the man was leading them lives several doors away from where he was living with his friend. He stated that he intends to go to AA meetings and stated that this gentleman would probably take him to the meetings. Patient states that he sign releases so that we can contact his niece and his friend. Patient reports no side effects from the medication and states he is eating and sleeping well. Mental Status: Appearance/Attitude: Patient is appropriately dressed, makes good eye contact and is cooperative. Behavior: Patient does not exhibit any psychomotor agitation or retardation. Speech/Language: Patient's speech is spontaneous, of normal volume and rhythm and he is coherent. Thought Process: Patient is goal-directed but can become circumstantial, no evidence of loose association or flight of ideas. Thought Content: Patient denies auditory or visual hallucinations and no delusions or paranoid ideation were elicited. Patient states he is sleeping and eating well. Patient is no longer verbalizing that he is disgusted with himself, or making suicidal statements about how he should be in a cemetery, should shoot himself in the head. Patient states that he is feeling better and is not feeling as discussed at about his life or as hopeless as he was on admission. Suicidal/Homicidal Ideation: Patient denies any current suicidal or homicidal ideation. Sensorium/Cognition: Patient is alert and oriented to person, place, and time and on testing has difficulty with recent memory, his remote memory is grossly intact Mood/Affect: Patient's mood is pleasant and his affect is appropriate Insight/Judgment: Patient's insight and judgment are fair Assessment: Patient reports that he is feeling better, is no longer verbalizing suicidal statements or saying that he is disgusted with himself and a hopeless case. Patient spoke about attending AA meetings in alf and found them helpful and that the man who was running them lives close to him. Patient states that he plans to return to live with his friend. He states he is no longer worried about the back taxes as his niece took care of them when he spoke with her earlier. Patient reports no side effects from the medication. Plan: Patient will continue on Celexa 10 mg in the morning. Social work will assist the patient in locating the commercial litigation attorney was handling his Social Security disability case. Patient signed releases to speak with both his friend Paulo with whom he lives as well as his knees. We'll plan for discharge in several days.
[2017-12-06 06:51] VITALS: BP 112/57; TEMP 98.1
[2017-12-06] MEDS: AMOXIC-POT CLAV 875-125MG 1 EACH TAB PO SCH (08:19)
[2017-12-06] MEDS: levETIRAcetam 500 MG TAB PO SCH (08:19)
[2017-12-06] MEDS: CITALOPRAM HYDROBROMIDE 10 MG TAB PO SCH (08:19)
[2017-12-06] MEDS: FAMOTIDINE 20 MG TAB PO SCH (08:19)
[2017-12-06] MEDS: IPRATROPIUM-ALBUTEROL 3 ML NEB INHALATION SCH ×2 (09:18→14:20)
[2017-12-06 09:30] VITALS: PULSE 66
[2017-12-06] MEDS: MULTIVITAMINS, THERA 1 EACH TAB PO SCH (11:34)
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
== END 2017-12-06 17:08 | disposition home or self-care (01) | DRG 881 ==
LOC: 3MHU 17:25
PROVIDERS: ADMIT Psychiatry & Neurology Psychiatry; ATTEND Psychiatry & Neurology Psychiatry
DX: F32.9 Major depressive disorder, single episode, unspecified (principal); J69.0 Pneumonitis due to inhalation of food and vomit; G93.89 Other specified disorders of brain; R45.851 Suicidal ideations; G31.84 Mild cognitive impairment of uncertain or unknown etiology; G40.909 Epilepsy, unspecified, not intractable, without status epilepticus; I10 Essential (primary) hypertension; S00.81XA Abrasion of other part of head, initial encounter; F41.9 Anxiety disorder, unspecified; Z80.9 Family history of malignant neoplasm, unspecified; Z79.899 Other long term (current) drug therapy; Z87.01 Personal history of pneumonia (recurrent); Z87.820 Personal history of traumatic brain injury
CPT/HCPCS: 80306; 84443; 94640

== ENCOUNTER 2021-04-22 17:13 | Inpatient (IN) | payer OTHER ==
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
[2021-04-22 18:03] LABS: Basophils % (A) 0 %; Eosinophils # (A) 0.1 k/uL (0-0.7); Eosinophils % (A) 0 %; HCT 36.8 % (39.0-53.0); HGB 12.8 gm/dL (13.0-17.5); Lymphocytes % (A) 5 %; MCH 33.2 pg (25.0-35.0); MCHC 34.9 g/dL (31.0-37.0); MCV 95.2 fL (80.0-100.0); Mean Platelet Volume 7.3; Monocytes # (A) 1.2 k/uL (0-1.0); Monocytes % (A) 6 %; Neutrophils # (A) 16.4 k/uL (1.3-7.7); Neutrophils % (A) 87 %; Platelet Count 204 k/uL (150-450); RBC 3.87 m/uL (4.30-5.90); RDW 13.1 % (11.5-15.5); WBC 18.9 k/uL (3.8-10.6)
[2021-04-22 18:12] LABS: Partial Thromboplastin Time 39.2 sec (22.0-30.0); Prothrombin Time 10.6 sec (9.0-12.0)
[2021-04-22] MEDS ORDERED: HEPARIN SODIUM 1,000 UN/ML (10ML VL) IV PRN (18:26)
[2021-04-22] MEDS ORDERED: HEPARIN SOD,PORK IN 0.45% NACL 25,000 UNIT in 0.45% NACL 1 250ML.BAG IV SCH (18:30)
[2021-04-22 18:32] LABS: ALT 26 U/L (4-49); AST 32 U/L (17-59); African American GFR (CKD) >90 (>60 ml/min/1.73 sqM); Albumin 3.4 g/dL (3.5-5.0); Alkaline Phosphatase 67 U/L (38-126); Anion Gap 10 mmol/L; Blood Urea Nitrogen 18 mg/dL (9-20); Calcium 7.4 mg/dL (8.4-10.2); Carbon Dioxide 17 mmol/L (22-30); Chloride 106 mmol/L (98-107); Glucose 136 mg/dL (74-99); Magnesium 2.4 mg/dL (1.6-2.3); Non-African American GFR(CKD) 85 (>60 ml/min/1.73 sqM); Sodium 133 mmol/L (137-145); Total Bilirubin 0.8 mg/dL (0.2-1.3); Total Protein 5.9 g/dL (6.3-8.2)
[2021-04-22 18:35] LABS: Potassium 4.2 mmol/L (3.5-5.1)
[2021-04-22] MEDS ORDERED: NITROGLYCERIN SL TABS 0.4 MG TAB SUBLINGUAL PRN (22:26)
[2021-04-22] MEDS ORDERED: LORazepam 2 MG/ML INJ IV PRN ×3 (23:29)
[2021-04-22] MEDS ORDERED: HYDROcodone/APAP 5-325MG 1 EACH TAB PO PRN (23:30)
[2021-04-22] MEDS: THIAMINE 100 MG TAB PO SCH (23:57)
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
[2021-04-23] MEDS ORDERED: ATORVASTATIN 40 MG TAB PO SCH (00:15)
[2021-04-23] MEDS ORDERED: SODIUM CHLORIDE 0.9% 1,000 ML IV SCH (00:15)
[2021-04-23] MEDS ORDERED: lamoTRIgine 100 MG TAB PO SCH (01:21)
[2021-04-23] MEDS: levETIRAcetam 500 MG TAB PO SCH ×2 (02:10→09:19)
[2021-04-23] MEDS: THIAMINE 100 MG TAB PO SCH ×2 (06:23→16:38)
[2021-04-23 08:13] LABS: Basophils % (A) 0 %; Eosinophils % (A) 0 %; HCT 38.4 % (39.0-53.0); HGB 12.8 gm/dL (13.0-17.5); Lymphocytes # (A) 1.6 k/uL (1.0-4.8); Lymphocytes % (A) 13 %; MCH 32.2 pg (25.0-35.0); MCHC 33.4 g/dL (31.0-37.0); MCV 96.6 fL (80.0-100.0); Mean Platelet Volume 8.2; Monocytes # (A) 0.9 k/uL (0-1.0); Monocytes % (A) 7 %; Neutrophils # (A) 9.2 k/uL (1.3-7.7); Neutrophils % (A) 77 %; Platelet Count 180 k/uL (150-450); RBC 3.98 m/uL (4.30-5.90); RDW 13.5 % (11.5-15.5); WBC 11.9 k/uL (3.8-10.6)
[2021-04-23 08:24] LABS: Prothrombin Time 10.4 sec (9.0-12.0)
[2021-04-23] MEDS ORDERED: ASPIRIN 325 MG TAB PO SCH (09:00)
[2021-04-23] MEDS ORDERED: ATORVASTATIN 20 MG TAB PO SCH (09:00)
[2021-04-23] MEDS ORDERED: ASPIRIN 81 MG PO SCH (09:15)
[2021-04-23 10:09] VITALS: RESP 18; TEMP 98.3
--- NOTE | 2021-04-23 10:43 | ECHOF ---
Referral Reason:LV function MEASUREMENTS -------- HEIGHT: 172.7 cm WEIGHT: 81.2 kg BP: 132/80 RVIDd: 4.0 cm (< 3.3) IVSd: 1.2 cm (0.6 - 1.1) LVIDd: 3.8 cm (3.9 - 5.3) LVPWd: 1.3 cm (0.6 - 1.1) IVSs: 1.6 cm LVIDs: 1.8 cm LVPWs: 1.6 cm LAESV Index (A-L): 36.81 ml/m Ao Diam: 3.3 cm (2.0 - 3.7) AV Cusp: 2.3 cm (1.5 - 2.6) LA Diam: 3.1 cm (2.7 - 3.8) MV EXCURSION: 19.676 mm (> 18.000) MV EF SLOPE: 50 mm/s (70 - 150) EPSS: 0.5 cm MV E Shamar: 1.24 m/s MV DecT: 150 ms MV A Shamar: 0.47 m/s MV E/A Ratio: 2.62 RAP: 5.00 mmHg RVSP: 40.29 mmHg FINDINGS -------- Sinus rhythm. This was a technically difficult study with suboptimal apical views. The left ventricular size is normal. There is mild concentric left ventricular hypertrophy. Overa ll left ventricular systolic function is normal with, an EF between 55 - 60 %. The diastolic fillin g pattern is normal for the age of the patient 16.96. The right ventricle is moderately enlarged. LA is moderately dilated 34-39 ml/m2 The right atrium is mildly enlarged. 5.0mg of Lumason was utilized for enhancement of images Interatrial and interventricular septum intact. The aortic valve is trileaflet and appears structurally normal. There is no evidence of aortic regu rgitation. There is no evidence of aortic stenosis. Fycc-ko-ziqzicou mitral regurgitation is present. Btgx-fn-vbjxptuk tricuspid regurgitation present. There is mild to moderate pulmonary hypertension. The right ventricular systolic pressure, as measured by Doppler, is 40.29mmHg. There is no pulmonic regurgitation present. The aortic root size is normal. The inferior vena cava is mildly dilated. There is no pericardial effusion. CONCLUSIONS -------- 1. The left ventricular size is normal. 2. There is mild concentric left ventricular hypertrophy. 3. Overall left ventricular systolic function is normal with, an EF between 55 - 60 %. 4. The right ventricle is moderately enlarged. 5. LA is moderately dilated 34-39 ml/m2 6. The right atrium is mildly enlarged. 7. Eybq-oq-lgkyfref mitral regurgitation is present. 8. Hezm-dt-xllavwye tricuspid regurgitation present. 9. There is mild to moderate pulmonary hypertension. 10. The right ventricular systolic pressure, as measured by Doppler, is 40.29mmHg. 11. The inferior vena cava is mildly dilated. FIELD CAPTAIN: Chelsea Diaz RDCS
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
[2021-04-23] MEDS ORDERED: DOBUTamine DRIP for NUC MED 500 MG in DEXTROSE/WATER 1 250ML.BAG IV PRN (11:02)
--- NOTE | 2021-04-23 13:03 | P.PN ---
Subjective Progress Note Date: 04/23/21 Patient was seen and evaluated by me this morning. He denies any chest pain. No acute events overnight reported by nursing staff. Objective - Vital Signs Vital signs: Vital Signs Temp 98.3 F 04/23/21 08:00 Pulse 71 04/23/21 11:56 Resp 18 04/23/21 11:56 BP 126/78 04/23/21 11:56 Pulse Ox 95 04/23/21 11:56 Intake & Output 04/22/21 04/23/21 04/23/21 18:59 06:59 18:59 Intake Total 73.485 Output Total 400 Balance -326.515 Weight 81.647 kg 81.5 kg Intake: Intake, IV Titration 73.485 Amount Heparin Sod,Pork in 0.45% 73.485 NaCl 25,000 unit In 0.45 % NaCl 1 250ml.bag @ 12 UNITS/KG/HR 9.798 mls/hr IV .Q24H [facility] Rx#: [id number] Output: Urine 400 Other: Voiding Method Urinal # Voids 1 - Exam General: The patient is awake and alert, in no distress Eye: there is normal conjunctiva bilaterally. Neck: The neck is supple, there is no JVD. Cardiovascular: Normal S1-S2, no S3-S4, no murmurs. Respiratory: Lungs clear to auscultation bilaterally Gastrointestinal: Abdomen is soft, nontender Musculoskeletal: There is no pedal edema. Neurological:. Speech is normal. Skin: Skin is warm and dry - Labs CBC & Chem 7: 04/23/21 07:19 04/22/21 17:59 Labs: Abnormal Lab Results - Last 24 Hours (Table) 04/22/21 04/22/21 04/22/21 Range/Units 17:59 17:59 17:59 WBC 18.9 H (3.8-10.6) k/uL RBC 3.87 L (4.30-5.90) m/uL Hgb 12.8 L (13.0-17.5) gm/dL Hct 36.8 L (39.0-53.0) % Neutrophils # 16.4 H (1.3-7.7) k/uL Monocytes # 1.2 H (0-1.0) k/uL APTT 39.2 H (22.0-30.0) sec Sodium 133 L (137-145) mmol/L Carbon Dioxide 17 L (22-30) mmol/L Glucose 136 H (74-99) mg/dL Calcium 7.4 L (8.4-10.2) mg/dL Magnesium 2.4 H (1.6-2.3) mg/dL Troponin I (0.000-0.034) ng/mL Total Protein 5.9 L (6.3-8.2) g/dL Albumin 3.4 L (3.5-5.0) g/dL 04/22/21 04/23/21 04/23/21 Range/Units 17:59 00:09 00:09 WBC (3.8-10.6) k/uL RBC (4.30-5.90) m/uL Hgb (13.0-17.5) gm/dL Hct (39.0-53.0) % Neutrophils # (1.3-7.7) k/uL Monocytes # (0-1.0) k/uL APTT 34.5 H (22.0-30.0) sec Sodium (137-145) mmol/L Carbon Dioxide (22-30) mmol/L Glucose (74-99) mg/dL Calcium (8.4-10.2) mg/dL Magnesium (1.6-2.3) mg/dL Troponin I 0.073 H* 0.067 H* (0.000-0.034) ng/mL Total Protein (6.3-8.2) g/dL Albumin (3.5-5.0) g/dL 04/23/21 04/23/21 04/23/21 Range/Units 03:51 07:19 07:19 WBC 11.9 H (3.8-10.6) k/uL RBC 3.98 L (4.30-5.90) m/uL Hgb 12.8 L (13.0-17.5) gm/dL Hct 38.4 L (39.0-53.0) % Neutrophils # 9.2 H (1.3-7.7) k/uL Monocytes # (0-1.0) k/uL APTT 55.0 H (22.0-30.0) sec Sodium (137-145) mmol/L Carbon Dioxide (22-30) mmol/L Glucose (74-99) mg/dL Calcium (8.4-10.2) mg/dL Magnesium (1.6-2.3) mg/dL Troponin I 0.051 H* (0.000-0.034) ng/mL Total Protein (6.3-8.2) g/dL Albumin (3.5-5.0) g/dL Assessment and Plan Assessment: This is a 55-year-old male with past medical history noted below who presented to an outside emergency room after he was found the trunk and unresponsive in his car. He was evaluated over there and was transferred to our hospital for further management of his medical problems noted below. 1. Non-ST elevation [place]: Treated with IV heparin, aspirin, and Lipitor. Seen and evaluated by cardiology. Echocardiogram showed preserved EF of 55-60% with moderate enlargement in the RV and LA. patient also had moderate pulmonary hypertension with moderate MR and TR. He is scheduled for dobutamine cardiac stress test as ordered by cardiology. 2. Alcohol abuse: Counseled extensively to quit. Ativan as needed per protocol. 3. Chronic medical problems: Hyperlipidemia, underlying seizure disorder, history of traumatic brain injury, chronic anemia
--- NOTE | 2021-04-23 15:12 | P.DS ---
Providers Date of admission: 04/22/21 22:28 Expected date of discharge: 04/23/21 Attending physician: Juliano Munoz MD Consults: 04/22/21 22:27 Consult Physician Urgent Consulting Provider: [facility] Consult Reason/Comments: NSTEMI Do you want consulting provider notified?: Yes, Notify in am Primary care physician: [facility] Hospital Course: This is a 55-year-old male with past medical history noted below who presented to an outside emergency room after he was found the drunk and unresponsive in his car. He was evaluated over there and was transferred to our hospital for further management of his medical problems noted below. 1. Non-ST elevation [place]: Treated with IV heparin, aspirin, and Lipitor. Seen and evaluated by cardiology. Echocardiogram showed preserved EF of 55-60% with moderate enlargement in the RV and LA. patient also had moderate pulmonary hypertension with moderate MR and TR. His troponin elevation with thought to be non-thrombotic troponin leak. Patient underwent dobutamine cardiac stress test as ordered by cardiology that was negative. Cardiology cleared patient for discharge home. 2. Alcohol abuse: Counseled extensively to quit. Ativan as needed per protocol. No evidence of withdrawal 3. Chronic medical problems: Hyperlipidemia, underlying seizure disorder, history of traumatic brain injury, chronic anemia Patient was seen and evaluated by me on the day of discharge. He was counseled extensively to quit drinking. He will be discharged home in a stable condition. For further details about this hospitalization please refer to the electronic chart. Patient Condition at Discharge: Fair Plan - Discharge Summary Discharge Rx Participant: Yes New Discharge Prescriptions: Continue levETIRAcetam [Keppra] 1,000 mg PO Q12HR #112 tab Atorvastatin [Lipitor] 20 mg PO DAILY lamoTRIgine [LaMICtal] 200 mg PO HS Cholecalciferol (Vitamin D3) [Vitamin D3 (125 MCG = 5,000 IU)] 125 mcg PO DAILY Discharge Medication List levETIRAcetam [Keppra] 1,000 mg PO Q12HR #112 tab 12/06/17 [Rx] Atorvastatin [Lipitor] 20 mg PO DAILY 04/22/21 [History] Cholecalciferol (Vitamin D3) [Vitamin D3 (125 MCG = 5,000 IU)] 125 mcg PO DAILY 04/22/21 [History] lamoTRIgine [LaMICtal] 200 mg PO HS 04/22/21 [History] Follow up Appointment(s)/Referral(s): Ana Hendrickson, PAC [Primary Care Provider] - 1-2 days Discharge Disposition: HOME SELF-CARE
[2021-04-23 16:02] VITALS: BP 134/78; PULSE 72
[2021-04-23 20:39] LABS: Chol/HDL Ratio 2.15; LDL Cholesterol,Calculated 26.8 mg/dL (0.0-131.0); VLDL Calculation 18.2 mg/dL (5.00-40.00)
--- NOTE | 2021-04-24 12:02 | ECHOS ---
STRESS ECHOCARDIOGRAM INDICATIONS: Elevated Troponin BASELINE HEART RATE: 60 BASELINE BLOOD PRESSURE: 107/62 MAXIMUM HEART RATE: 146 MAXIMUM BLOOD PRESSURE: 170/88 85% MPHR: 141 100% MPHR: 166 METS: NA MAXIMUM STAGE REACHED: 4 TOTAL EXERCISE TIME: 10:28 CLINICAL INFORMATION: Echo contrast was necessary to enhance the quality of images. Baseline EKG revealed sinus mechanism without significant ST-T changes. Patient was administered dobutamine as per protocol and the heart rate went up to 145 beats per minute, which is more than 85% of predicted maximal. There was no evidence of any arrhythmia. There were no ST- segment changes to indicate ischemia. The patient did not have any significant symptoms. Rare PVCs were noted. By EKG criteria, this is a negative dobutamine stress test without evidence of ischemic changes on the EKG. Baseline echo images revealed normal wall motion and wall thickening of all segments. With dobutamine administration as per protocol, there was progressive increase in contractility noted. There is no evidence to suggest any ischemia on this dobutamine stress echocardiogram. FINAL IMPRESSION: 1. By EKG criteria, this is an unremarkable dobutamine stress test. 2. Normal dobutamine stress echocardiogram without evidence of ischemia. MMODL / IJN: [id number] /
== END 2021-04-23 17:29 | disposition home or self-care (01) | DRG 281 ==
LOC: EC 17:13 → 3SCARD 22:28
PROVIDERS: ADMIT Internal Medicine; ATTEND Internal Medicine
DX: I21.4 Non-ST elevation (NSTEMI) myocardial infarction (principal); E87.2 Acidosis; I27.20 Pulmonary hypertension, unspecified; F10.10 Alcohol abuse, uncomplicated; F32.9 Major depressive disorder, single episode, unspecified; F41.9 Anxiety disorder, unspecified; D64.9 Anemia, unspecified; I08.1 Rheumatic disorders of both mitral and tricuspid valves; D72.829 Elevated white blood cell count, unspecified; E78.5 Hyperlipidemia, unspecified; G40.909 Epilepsy, unspecified, not intractable, without status epilepticus; I10 Essential (primary) hypertension; Z20.822 Contact with and (suspected) exposure to COVID-19; Z71.41 Alcohol abuse counseling and surveillance of alcoholic; Z87.820 Personal history of traumatic brain injury; Z79.899 Other long term (current) drug therapy; Z65.3 Problems related to other legal circumstances; Z87.01 Personal history of pneumonia (recurrent); Z98.890 Other specified postprocedural states
CPT/HCPCS: 36415; 80053; 80061; 80320; 83735; 84484; 85025; 85610; 85730; 93005; 93306; 93351; 99285